=== PATIENT | female | born 1945 | race Caucasian/White ===

== ENCOUNTER → 2022-06-09 | Outpatient (CLI) | payer MEDICARE ==
[2022-06-09 12:55] LABS: Stool Occult Bld Immuno 1 Negative (NEGATIVE)
== END | disposition home or self-care (01) ==
LOC: LAB 11:11 → LAB SHORT 11:11
PROVIDERS: Family Medicine
DX: M62.08 Separation of muscle (nontraumatic), other site (principal); R19.4 Change in bowel habit
CPT/HCPCS: G0328

== ENCOUNTER → 2022-10-20 | Outpatient (CLI) | payer MEDICARE | LOC: LAB 15:55 → LAB SHORT 15:55 | DX: D48.5 Neoplasm of uncertain behavior of skin (principal) | CPT/HCPCS: 88305 ==

== ENCOUNTER → 2022-12-18 | Outpatient (CLI) | payer MEDICARE, BC | LOC: LAB 14:49 → LAB SHORT 14:49 | DX: L82.0 Inflamed seborrheic keratosis (principal) | CPT/HCPCS: 88305 ==